=== PATIENT | female | born 1970 | race Caucasian/White ===

== ENCOUNTER → 2020-05-20 18:14 | Outpatient (BNVA) | payer OTHER, SELFPAY | PROVIDERS: Visit Provider Nurse Practitioner Family | DX: Z20.828 Contact with and (suspected) exposure to other viral communicable diseases (principal) | CPT/HCPCS: 87635 ==

== ENCOUNTER 2022-03-24 12:59 | Outpatient (CLI) | payer OTHER, SELFPAY ==
--- NOTE | 2022-03-24 13:16 | USCV_ITS ---
Jacquelin Watters Age: 51 Gender: F : 1970 Exam Date: 03/24/2022 13:18 Ordering Phys: Williams Yee MD Technologist: CT Exam Location: [facility] [place] Indication: DIZZINESS Risk Factors: Previous Vascular Surgery: Right Brachial BP: / Left Brachial BP: / Right Left Velocity (cm/s) Spectral Plaque Velocity (cm/s) Spectral Plaque Syst/Diast Broadening Syst/Diast Broadening 87.80/ 28.70 Prox CCA 81.60 / 31.90 87.70/ 35.50 Mid CCA 69.50 / 28.70 86.30/ 35.70 Distal CCA 75.90 / 31.40 55.10/ 23.10 Prox ICA 61.90 / 26.30 Homo 75.30/ 33.30 Mid ICA 80.70 / 33.80 80.70/ 32.10 Distal ICA 79.10 / 33.80 89.40 ECA 307.70 0.92 ICA/CCA 0.99 Antegrade Vertebral Antegrade 33.20/ 10.60 cm/s 55.60/ 19.30 cm/s Tri Subclavian Tri 92.90 91.90 FINDINGS THERE IS SOME PROMINENT SOFT PLQ WITHIN THE LEFT BULB CONCLUSIONS Right ICA stenosis <50%. . Mild atheromatous plaque right carotid bulb/ICA. Left ICA stenosis <50%. Moderate prominent eccentric atheromatous soft plaque left carotid bulb. Normal antegrade Doppler flow noted in the right vertebral artery. Normal antegrade Doppler flow noted in the left vertebral artery. Rc Rodríguez MD (Electronically Signed) Final Date: 24 March 2022 16:20 S
== END 2022-03-24 13:00 | disposition home or self-care (01) ==
LOC: RAD 13:01
PROVIDERS: PCP Family Medicine; Visit Provider Family Medicine
DX: R55 Syncope and collapse (principal); R51.9 Headache, unspecified; R42 Dizziness and giddiness; I65.23 Occlusion and stenosis of bilateral carotid arteries
CPT/HCPCS: 93880

== ENCOUNTER 2022-04-15 08:51 | Outpatient (CLI) | payer OTHER, SELFPAY ==
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
== END 2022-04-15 08:52 | disposition home or self-care (01) ==
PROVIDERS: PCP Family Medicine; Visit Provider Family Medicine
DX: M54.2 Cervicalgia (principal); R51.9 Headache, unspecified
CPT/HCPCS: 72050

== ENCOUNTER 2022-06-09 13:32 | Outpatient (CLI) | payer OTHER, SELFPAY ==
--- NOTE | 2022-06-09 13:41 | CT_ITS ---
WS: [id number] CT HEAD NONCONTRAST HISTORY: SYNCOPE/HEADACHE TECHNIQUE: Contiguous axial imaging performed through the brain in 2.5 mm imaging. Bone and soft tiss ue windows. Sagittal and coronal reformats reviewed. All CT scans at [facility] use at least one of these dose optimization techniques: automated exposure control; mA and/or kV adjustment per pa tient size (includes targeted exams where dose is matched to clinical indication); or iterative recon struction. DLP: 882.43 mGy.cm COMPARISON: 04/07/2010 No acute intracranial hemorrhage, midline shift or mass effect. No atrophy or prior infarcts or herniation. Prominent perivascular spaces inferior RIGHT basal gangl ia. Ventricles: Normal size with no hydrocephalus. Paranasal sinuses: As visualized are clear. Mastoid air cells: Well pneumatized. Calvarium and scalp: Skull is intact with no soft tissue edema or swelling. CT/CT head wo con* [id number] IMPRESSION: 1. No acute intracranial hemorrhage or edema. 2. Stable RIGHT perivascular spaces.
== END 2022-06-09 13:33 | disposition home or self-care (01) ==
PROVIDERS: PCP Family Medicine; Visit Provider Family Medicine
DX: R51.9 Headache, unspecified (principal)
CPT/HCPCS: 70450

== ENCOUNTER 2022-06-29 09:19 | Outpatient (RCR) | payer OTHER, SELFPAY | END 2022-07-10 23:59 | disposition home or self-care (01) | LOC: SPT 09:19 | PROVIDERS: PCP Family Medicine; Visit Provider Otolaryngology | DX: R42 Dizziness and giddiness (principal); R51.9 Headache, unspecified | CPT/HCPCS: 95992; 97162 ==

== ENCOUNTER 2022-09-11 09:45 | Outpatient (CLI) | payer OTHER, SELFPAY ==
--- NOTE | 2022-09-11 09:57 | XRR_ITS ---
PROCEDURE INFORMATION: Exam: XR Chest Exam date and time: 09/11/2022 10:17 AM Age: 52 years old Clinical indication: Abnormal findings; Abnormal radiologic exam of lung or chest; Patient HX: Soft tissue calcification/prior granulomatous infection; Additional info: Soft tissue calcification/prior granulomatous infection, ap/lat/oblique TECHNIQUE: Imaging protocol: Radiologic exam of the chest. Views: 2 views. COMPARISON: CR XR cervical spine 4-5V [id number] 04/15/2022 9:26 AM FINDINGS: Lungs: Lung madrigal are aerated and clear. No infiltrates or overt CHF. Pleural spaces: Unremarkable. No pleural effusion. No pneumothorax. Heart/Mediastinum: There is some granulomatous calcifications within the mediastinum projecting just below the zoe. There is mild asymmetric prominence of the right hilum, nonspecific. Bones/joints: Unremarkable for age. XR/XR chest 3V [id number] IMPRESSION: 1. Chronic granulomatous calcifications within the mediastinum. 2. Nonspecific asymmetric prominence right hilum which follow-up nonemergent CT chest preferably with IV contrast recommended for clarification.
--- NOTE | 2022-09-11 10:23 | XRR_ITS ---
PROCEDURE INFORMATION: Exam: XR Orbits Exam date and time: 09/11/2022 10:30 AM Age: 52 years old Clinical indication: Eye pain; Left; Additional info: Left eye orbit pain TECHNIQUE: Imaging protocol: XR of the orbits. Views: Minimum of 4 views COMPARISON: CT head wo con* [id number] 06/09/2022 1:59 PM FINDINGS: Sinuses: Well aerated. No opacification. Bones/joints: No fracture. Soft tissues: Unremarkable. No radiopaque foreign body. XR/XR orbits [id number] IMPRESSION: Unremarkable examination of the orbits. If further assessment is felt clinically warranted either CT or MRI examination of the orbits is recommended.
== END 2022-09-11 09:46 | disposition home or self-care (01) ==
LOC: RAD 09:49
PROVIDERS: PCP Family Medicine; Visit Provider Family Medicine
DX: J98.4 Other disorders of lung (principal); L92.0 Granuloma annulare
CPT/HCPCS: 70200; 71047

== ENCOUNTER 2024-03-16 13:51 | Outpatient (CLI) | payer OTHER, SELFPAY ==
--- NOTE | 2024-03-16 14:00 | CTR_ITS ---
PROCEDURE INFORMATION: Exam: CTA Head With Contrast, Arteriography Exam date and time: 03/16/2024 2:29 PM Age: 53 years old Clinical indication: Patient HX: Headache x 9 days, RT twitching and vertigo x 6 days. RT eye swelling since yesterday. ; Additional info: I65.22 - occlusion and stenosis of left carotid artery, case numbers [id number] TECHNIQUE: Imaging protocol: Computed tomographic angiography of the head with contrast. Exam focused on the arteries. 3D rendering (Not supervised by radiologist): MIP and/or 3D reconstructed images were created by the technologist. Radiation optimization: All CT scans at this facility use at least one of these dose optimization techniques: automated exposure control; mA and/or kV adjustment per patient size (includes targeted exams where dose is matched to clinical indication); or iterative reconstruction. Contrast material: OMNI 350; Contrast volume: 100 ml; Contrast route: INTRAVENOUS (IV); COMPARISON: CT head wo con* [id number] 06/09/2022 1:59 PM RADIATION DOSE METRICS: Total DLP (mGy-cm): 1079.35 FINDINGS: ANTERIOR CIRCULATION: Right internal carotid artery: Intracranial segment is patent with no significant stenosis. No aneurysm. Right middle cerebral artery: No occlusion or significant stenosis. No aneurysm. Right anterior cerebral artery: No occlusion or significant stenosis. No aneurysm. Left internal carotid artery: Intracranial segment is patent with no significant stenosis. No aneurysm. Left middle cerebral artery: No occlusion or significant stenosis. No aneurysm. Left anterior cerebral artery: No occlusion or significant stenosis. No aneurysm. POSTERIOR CIRCULATION: Right vertebral artery: No occlusion or significant stenosis. No aneurysm. Left vertebral artery: No occlusion or significant stenosis. No aneurysm. Basilar artery: No occlusion or significant stenosis. No aneurysm. Right posterior cerebral artery: No occlusion or significant stenosis. No aneurysm. Left posterior cerebral artery: No occlusion or significant stenosis. No aneurysm. Brain: No hemorrhage. No edema. Moderate diffuse cerebral atrophy and mild sequela of chronic small vessel ischemic disease. No mass effect. Cerebral ventricles: No ventriculomegaly. Bones/joints: Unremarkable. No acute fracture. Soft tissues: Unremarkable. PROCEDURE INFORMATION: Exam: CTA Neck With Contrast Exam date and time: 03/16/2024 2:29 PM Age: 53 years old Clinical indication: Patient HX: Headache x 9 days, RT twitching and vertigo x 6 days. RT eye swelling since yesterday. ; Additional info: I65.22 - occlusion and stenosis of left carotid artery, case numbers [id number] TECHNIQUE: Imaging protocol: Computed tomographic angiography of the neck with contrast. Exam focused on the cervical segments of the vasculature. 3D rendering (Not supervised by radiologist): MIP and/or 3D reconstructed images were created by the technologist. Radiation optimization: All CT scans at this facility use at least one of these dose optimization techniques: automated exposure control; mA and/or kV adjustment per patient size (includes targeted exams where dose is matched to clinical indication); or iterative reconstruction. Contrast material: OMNI 350; Contrast volume: 100 ml; Contrast route: INTRAVENOUS (IV); COMPARISON: CR XR cervical spine 4-5V [id number] 04/15/2022 9:26 AM RADIATION DOSE METRICS: Total DLP (mGy-cm): 100 FINDINGS: Right common carotid artery: No stenosis. No dissection or occlusion. Right internal carotid artery: There is mild narrowing at the origin of the internal carotid artery. No calcified or noncalcified plaque is seen in this region. No dissection or occlusion. Right external carotid artery: No occlusion or stenosis of the origin. Left common carotid artery: No stenosis. No dissection or occlusion. Left internal carotid artery: No stenosis of the extracranial segment. No dissection or occlusion. Left external carotid artery: There is moderate to severe narrowing of the origin of the left external carotid artery. Right vertebral artery: No stenosis. No dissection or occlusion. Left vertebral artery: No stenosis. No dissection or occlusion. Soft tissues: Normal. No significant soft tissue swelling. Bones/joints: No acute fracture. Lungs: Moderate to severe emphysematous changes at the lung apices. CT/CT angio headneck* [id number] IMPRESSION: No large vessel stenosis or occlusion. IMPRESSION: 1. There is moderate to severe narrowing of the origin of the left external carotid artery. The left common carotid and internal carotid arteries are widely patent. 2. There is mild narrowing at the origin of the right internal carotid artery without visualized calcified and noncalcified plaque in this region. Both these findings could reflect vasospasm/vasoconstriction. REFERENCES: NASCET CRITERIA. The degree of stenosis in the cervical segment of the internal carotid artery is based on NASCET criteria. Normal is no stenosis. Mild is less than 50% stenosis. Moderate is 50-69% stenosis. Severe is 70% to 99% stenosis. Total occlusion is no detectable patent lumen.
[2024-03-16] MEDS: iohexol 350 mg/mL 500 mL Btl (per mL) IV (14:47)
== END 2024-03-16 13:52 | disposition home or self-care (01) ==
PROVIDERS: PCP Family Medicine; Visit Provider Family Medicine
DX: I65.22 Occlusion and stenosis of left carotid artery (principal); R55 Syncope and collapse; H93.13 Tinnitus, bilateral; R51.9 Headache, unspecified
CPT/HCPCS: 70496; 70498

== ENCOUNTER → 2024-06-19 13:36 | Outpatient (BNVA) | payer OTHER, SELFPAY | PROVIDERS: PCP Family Medicine; Visit Provider Family Medicine | DX: R31.9 Hematuria, unspecified (principal); N39.0 Urinary tract infection, site not specified | CPT/HCPCS: 81000 ==

== ENCOUNTER 2024-08-14 08:49 | Outpatient (CLI) | payer OTHER, SELFPAY ==
--- NOTE | 2024-08-14 09:00 | CT_ITS ---
WS: [id number] LDCT LUNG CANCER SCREENING TECHNIQUE: Noncontrast CT of the chest with coronal and sagittal reformatted images. CLINICAL INFORMATION: Z72.0 - Tobacco use COMPARISON: None. DLP: 49.02 mGy.cm DIvol: Mean CTDIvol: 0.90 (mGy) All CT scans at [facility] use at least one of these dose optimization techniques: automated exposure control; mA and/or kV adjustment per patient size (includes targeted exams where dose is matched to clinical indication); or iterative reconstruction. FINDINGS: Advanced chronic emphysematous changes. Fibrosis in the lung apices. Calcified granulomas LEFT lower lobe. Tiny nodule RIGHT upper lobe anteriorly. Normal caliber thoracic aorta. Calcified subcarinal lymph nodes. No mediastinal or hilar lymphadenopathy. No axillary lymphadenopathy. Adrenal glands are normal. Splenic granulomas. Small esophageal hernia. Mild thoracic curve. CT/CT lung screening [id number] IMPRESSION: LUNG-RADS: 2-Benign Appearance or Behavior FOLLOW UP: 12 Month: Continue annual screening with LDCT
== END 2024-08-14 08:50 | disposition home or self-care (01) ==
PROVIDERS: PCP Family Medicine; Visit Provider Family Medicine
DX: Z12.2 Encounter for screening for malignant neoplasm of respiratory organs (principal); Z72.0 Tobacco use; J43.8 Other emphysema; J84.10 Pulmonary fibrosis, unspecified; I89.8 Other specified noninfective disorders of lymphatic vessels and lymph nodes; D73.89 Other diseases of spleen; K44.9 Diaphragmatic hernia without obstruction or gangrene; M43.8X4 Other specified deforming dorsopathies, thoracic region
CPT/HCPCS: 71271

== ENCOUNTER → 2024-08-15 11:00 | Outpatient (BNVA) | payer OTHER, SELFPAY | PROVIDERS: PCP Family Medicine; Visit Provider Family Medicine | DX: R42 Dizziness and giddiness (principal); H93.13 Tinnitus, bilateral; R25.3 Fasciculation; G43.711 Chronic migraine without aura, intractable, with status migrainosus | CPT/HCPCS: 80053; 85025; 85651; 86038; 86140 ==

== ENCOUNTER 2024-10-20 15:07 | Outpatient (CLI) | payer OTHER, SELFPAY ==
--- NOTE | 2024-10-20 15:00 | CTR_ITS ---
PROCEDURE INFORMATION: Exam: CT Abdomen And Pelvis Without Contrast Exam date and time: 10/20/2024 3:33 PM Age: 54 years old Clinical indication: Nausea and vomiting; N/v/d x 5-6 weeks, low abd pain, 20 lb weight loss; Additional info: K52.9 - noninfective gastroenteritis and colitis, unspeci. . . TECHNIQUE: Imaging protocol: Computed tomography of the abdomen and pelvis without contrast. Radiation optimization: All CT scans at this facility use at least one of these dose optimization techniques: automated exposure control; mA and/or kV adjustment per patient size (includes targeted exams where dose is matched to clinical indication); or iterative reconstruction. COMPARISON: CT lung screening [id number] 08/14/2024 8:58 AM RADIATION DOSE METRICS: Total DLP (mGy-cm): 272.17 FINDINGS: Lungs: Calcified granulomata seen in the right lung base. Mild pulmonary emphysema. Liver: No significant liver pathology. Gallbladder and biliary ducts: Layering material in the gallbladder without discrete calculus. Gallbladder otherwise unremarkable. No biliary dilatation. Pancreas: No significant pancreatic pathology. Spleen: No significant splenic pathology. Adrenal glands: No significant adrenal pathology. Kidneys and ureters: Nonobstructive left renal calculi measuring up to 2 mm. 1 mm nonobstructive right lower pole renal calculus. No evidence of ureteral calculus or urinary obstruction. Stomach and bowel: Colonic diverticulosis without evidence of focal inflammatory change. There is a abundant fluid in small bowel with some scattered air-fluid levels (example pelvis series 4, image 66). No obstructive pattern or dilated bowel evident. Appendix: Appendix within normal limits. Intraperitoneal space: No ascites. Vasculature: No abdominal aortic aneurysm. Lymph nodes: No evidence of lymphadenopathy. Urinary bladder: Urinary bladder is nondistended limiting assessment of the wall. Reproductive: No significant uterine pathology. No significant adnexal pathology. Bones/joints: No significant bony pathology. Soft tissues: Small fat containing umbilical hernia. CT/CT abdomen pelvis wo con [id number] IMPRESSION: 1. Abundant small bowel fluid with several air-fluid levels but no evidence of bowel dilatation or obstruction. Findings suggesting possible infectious/inflammatory pathology. Clinical correlation is recommended. 2. Minor findings noted above including nonobstructive bilateral renal calculi and colonic diverticulosis.
== END 2024-10-20 15:08 | disposition home or self-care (01) ==
LOC: RAD 15:08
PROVIDERS: PCP Family Medicine; Visit Provider Family Medicine
DX: K52.9 Noninfective gastroenteritis and colitis, unspecified (principal); R10.9 Unspecified abdominal pain; R11.2 Nausea with vomiting, unspecified; R63.4 Abnormal weight loss; R93.5 Abnormal findings on diagnostic imaging of other abdominal regions, including retroperitoneum; J84.10 Pulmonary fibrosis, unspecified; J43.8 Other emphysema; R93.3 Abnormal findings on diagnostic imaging of other parts of digestive tract; N20.0 Calculus of kidney; K57.30 Diverticulosis of large intestine without perforation or abscess without bleeding; K42.9 Umbilical hernia without obstruction or gangrene
CPT/HCPCS: 74176

== ENCOUNTER 2024-11-30 08:59 | Outpatient (CLI) | payer OTHER, SELFPAY ==
--- NOTE | 2024-11-30 09:00 | CTR_ITS ---
PROCEDURE INFORMATION: Exam: CTA Abdominal Aorta and Bilateral Lower Extremities (Run-off) With Contrast Exam date and time: 11/30/2024 9:32 AM Age: 54 years old Clinical indication: Bilateral leg pain, restless legs at night; Additional info: Bilat leg pain TECHNIQUE: Imaging protocol: Computed tomographic angiography of the of the abdominal aorta, pelvis and bilateral lower extremities with contrast. 3D rendering (Not supervised by radiologist): MIP and/or 3D reconstructed images were created by the technologist. Radiation optimization: All CT scans at this facility use at least one of these dose optimization techniques: automated exposure control; mA and/or kV adjustment per patient size (includes targeted exams where dose is matched to clinical indication); or iterative reconstruction. Contrast material: OMNIPAQUE 350; Contrast volume: 110 ml; Contrast route: INTRAVENOUS (IV); COMPARISON: CT abdomen pelvis wo con [id number] 10/20/2024 3:33 PM RADIATION DOSE METRICS: Total DLP (mGy-cm): 1248.52 FINDINGS: Aorta: No aortic aneurysm. No aortic dissection. Celiac trunk and mesenteric arteries: No occlusion or significant stenosis. Renal arteries: No occlusion or significant stenosis. Right iliac arteries: No occlusion or significant stenosis. Right femoral/popliteal arteries: No occlusion or significant stenosis. Right infrapopliteal arteries: No occlusion or significant stenosis. Left iliac arteries: No occlusion or significant stenosis. Left femoral/popliteal arteries: No occlusion or significant stenosis. Left infrapopliteal arteries: No occlusion or significant stenosis. Liver: No mass. Gallbladder and biliary ducts: Unremarkable. No calcified stones. No ductal dilation. Pancreas: Unremarkable. No mass. No ductal dilation. Spleen: Normal. No splenomegaly. Adrenal glands: Normal. No mass. Kidneys and ureters: Normal. No mass. Stomach and bowel: Unremarkable. No obstruction. No mucosal thickening. Appendix: No evidence of appendicitis. Urinary bladder: Unremarkable. No mass. Reproductive: Unremarkable as visualized. Intraperitoneal space: Unremarkable. No free air. No significant fluid collection. Lymph nodes: No lymphadenopathy. Bones/joints: No acute fracture. No dislocation. Soft tissues: Unremarkable. CT/CT angio abd aorta runof [id number] IMPRESSION: Unremarkable CTA abdomen, pelvis and lower extremities.
[2024-11-30] MEDS: iohexol 350 mg/mL 500 mL Btl (per mL) IV (09:45)
== END 2024-11-30 09:00 | disposition home or self-care (01) ==
PROVIDERS: PCP Family Medicine; Visit Provider Internal Medicine
DX: M79.604 Pain in right leg (principal); M79.605 Pain in left leg
CPT/HCPCS: 75635

== ENCOUNTER 2024-12-26 14:12 | Outpatient (CLI) | payer OTHER, SELFPAY ==
--- NOTE | 2024-12-26 14:15 | USCV_ITS ---
Jacquelin Watters Age: 54 Gender: F : 1970 Exam Date: 12/26/2024 14:27 Ordering Phys: Neil Marlow M.D ([email or web address]) Technologist: Exam Location: [facility] – [place] Indication: cp afif BP: 140 / 73 HR: 89 Rhythm: Sinus Technical Quality: Adequate MEASUREMENTS (Male / Female) Normal Values 2D ECHO LV Diastolic Diameter PLAX 4.5 cm 4.2 - 5.9 / 3.9 - 5.3 cm IVS Diastolic Thickness 1.0 cm 0.6 - 1.0 / 0.6 - 0.9 cm IVS Systolic Thickness 1.3 cm LVPW Diastolic Thickness 1.2 cm 0.6 - 1.0 / 0.6 - 0.9 cm LVPW Systolic Thickness 1.7 cm LVOT Diameter 1.8 cm LV Ejection Fraction 2D Teich 64.1 % LV Ejection Fraction MOD 4C 63.9 % LV Ejection Fraction MOD 2C 64.2 % LV Ejection Fraction 2C AL 62.8 % LA Diameter 3.2 cm RA Systolic Volume 4C AL 21.8 ml RA Systolic Volume 4C MOD 21.1 ml Aorta at Sinotubular Diameter 2.0 cm IVC Diameter 1.3 cm M-MODE LA Ao Ratio MM 1.3 AV Cusp Separation MM 2.4 cm DOPPLER AV Peak Velocity 221.3 cm/s LVOT Peak Velocity 128.0 cm/s AV Area Cont Eq vti 1.6 cm squared AV Area Cont Eq pk 1.5 cm squared MV Peak Velocity 122.0 cm/s MV Area PHT 4.1 cm squared Mitral E to A Ratio 1.3 TR Peak Velocity 81.0 cm/s TR Peak Gradient 2.6 mmHg PV Peak Velocity 117.0 cm/s FINDINGS Left Ventricle Left ventricle is normal in size. LV systolic function is normal with EF of 60-65%. No regional wall motion abnormalities are seen. Right Ventricle Normal in size and function Right Atrium Normal in size Left Atrium Normal in size Mitral Valve Structurally normal mitral valve. Mild mitral regurgitation. Aortic Valve Structurally normal aortic valve. No significant stenosis or regurgitation. Tricuspid Valve Mild tricuspid regurgitation. Insufficient TR jet to calculate RVSP Pulmonic Valve Not well visualized Pericardium Normal Aorta Normal in size IVC Appears to be normal CONCLUSIONS LV systolic function is normal with EF of 60-65% Mild mitral regurgitation Mild tricuspid regurgitation No comparison studies are available. Neil Marlow MD (Electronically Signed) Final Date: 27 December 2024 11:17 S
== END 2024-12-26 14:13 | disposition home or self-care (01) ==
PROVIDERS: PCP Family Medicine; Visit Provider Internal Medicine
DX: R06.02 Shortness of breath (principal); I34.0 Nonrheumatic mitral (valve) insufficiency; I36.1 Nonrheumatic tricuspid (valve) insufficiency
CPT/HCPCS: 93306

== ENCOUNTER → 2025-01-30 13:00 | Outpatient (BNVA) | payer OTHER, SELFPAY | PROVIDERS: PCP Family Medicine; Visit Provider Family Medicine | DX: R31.9 Hematuria, unspecified (principal); R30.0 Dysuria; E05.90 Thyrotoxicosis, unspecified without thyrotoxic crisis or storm; E87.6 Hypokalemia; N39.0 Urinary tract infection, site not specified | CPT/HCPCS: 80048; 81000; 84439; 84443; 84481; 87086 ==

== ENCOUNTER → 2025-02-07 12:20 | Outpatient (BNVA) | payer OTHER, SELFPAY | PROVIDERS: PCP Family Medicine; Visit Provider Internal Medicine | DX: E05.90 Thyrotoxicosis, unspecified without thyrotoxic crisis or storm (principal) | CPT/HCPCS: 36415; 83516; 85025 ==

== ENCOUNTER → 2025-04-04 10:09 | Outpatient (BNVA) | payer OTHER, SELFPAY | PROVIDERS: PCP Family Medicine; Visit Provider Family Medicine | DX: E55.9 Vitamin D deficiency, unspecified (principal); E05.00 Thyrotoxicosis with diffuse goiter without thyrotoxic crisis or storm; H93.13 Tinnitus, bilateral; R79.89 Other specified abnormal findings of blood chemistry; J44.9 Chronic obstructive pulmonary disease, unspecified; E83.42 Hypomagnesemia | CPT/HCPCS: 80053; 80061; 82306; 82533; 82607; 82746; 83735; 84439; 84443; 84480; 85651; 86038; 86140; 86200; 86431 ==